=== PATIENT | male | born 1980 ===

== ENCOUNTER 2022-07-13 13:52 | Emergency (ER) | payer BC ==
[2022-07-13] MEDS ORDERED: Ondansetron 4 MG Tab.DIS PO ONE ×2 (14:28→14:33)
[2022-07-13] MEDS ORDERED: Azithromycin 250 MG Tab PO ONE ×2 (14:28→14:33)
[2022-07-13] MEDS ORDERED: Ibuprofen 600 MG Tab PO ONE ×2 (14:28→14:33)
== END 2022-07-13 14:47 | disposition home or self-care (01) ==
LOC: MW.ED 13:52
DX: J02.0 Streptococcal pharyngitis (principal); Z88.1 Allergy status to other antibiotic agents
CPT/HCPCS: 99282; A9270